=== PATIENT | male | born 1980 | race Hispanic/Latino ===

== ENCOUNTER 2019-11-02 15:12 | Emergency (ER) | payer SELFPAY ==
[2019-11-02 15:32] VITALS: BP 147/94; PULSE 74; RESP 18; TEMP 36.9; O2SAT 99
--- NOTE | 2019-11-02 16:02 | ED.GENADULT ---
HPI - General Adult General Chief complaint: Chest Pain Stated complaint: chest pain/headaches Time Seen by Provider: 11/02/19 16:15 Source: patient Mode of arrival: ambulatory Limitations: no limitations History of Present Illness HPI narrative: 39-year-old male patient presents to the [facility] with complaints of chest pain for the past 5 days. Patient states the chest pain kind of comes and goes and when it does occur he rates it about 4-5 out of 10. Patient states when he bends over he does have a little bit of shortness of breath but denies any shortness of breath with exertion. Patient denies any cardiac history that he is aware of. Patient states he also has been feeling a little lightheaded and dizzy recently. Patient is complaining of some burning to the back of the throat at times and has had some chills but denies any fevers. Patient states he has been taking NyQuil for his symptoms. Related Data Home Medications Medication Instructions Recorded Confirmed No Home Medications 11/02/19 11/02/19 Allergies Allergy/AdvReac Type Severity Reaction Status Date / Time No Known Allergies Allergy Unverified 08/09/18 16:19 Review of Systems Review of Systems: Narrative: CONSTITUTIONAL: Denies fever, positive chills, denies sweats. EYES: Denies visual changes, redness, or discharge. ENT: Denies rhinorrhea, congestion, positive sore throat, denies otalgia. CARDIOVASCULAR: Positive midsternal chest pain, denies palpitations, or edema. RESPIRATORY: Denies cough, positive dyspnea with bending over. GASTROINTESTINAL: Denies abdominal pain, nausea, vomiting, or diarrhea. GENITOURINARY: Denies dysuria or hematuria. SKIN: Denies rash or itching. MUSCULOSKELETAL: Denies back pain, joint pain, or myalgia. NEUROLOGIC: Denies headache, numbness, or weakness., Lightheadedness and dizziness intermittently. PSYCHIATRIC: Denies anxiety or depression. [facility] Family History Family History Other Cerebrovascular accident Diabetes mellitus Family history of cardiovascular disease Family history of kidney disease Hypertension Social History Social History Smoking status: Never smoker Alcohol intake: never Comments At the time of my signature I agree with nursing past medical history, surgical, social, and family history. There is no relevant family history pertinent to the presenting complaint. Exam Narrative: Exam Narrative: GENERAL: Well-appearing, well-nourished, and in no acute distress. HEAD: Normocephalic, atraumatic. No tenderness noted to frontal maxillary sinuses on palpation EYES: PERRLA and EOMI. ENT: Nares clear, no rhinorrhea or epistaxis. Mucous membranes moist. Posterior pharynx with tonsil enlargement, 2+ and some erythema. No exudates or lesions present. Bilateral TMs are clear with no erythema or foreign bodies in the canal. NECK: Supple. No lymphadenopathy CHEST: Clear to auscultation. No respiratory distress. Patient able talk in clear complete sentences. HEART: Regular rate and rhythm. No murmur heard. Normal peripheral pulses. ABDOMEN: Soft, nontender, nondistended, normal active bowel sounds. EXTREMITIES: Normal range of motion. No edema. SKIN: Warm, dry, no rash. NEURO: No focal deficits. Alert and oriented x3. Course Reevaluation(s) Reevaluation #1: Notified patient that he is negative today for strep. Discussed with him that the fact that he is having midsternal chest pain for the last 5 days with lightheadedness and dizziness is concerning and even though his EKG is unremarkable for anything acute such as an OR I think that we do need to send him to the ER for further evaluation and treatment treatment of these issues. Patient is in agreement with this plan of care requesting to go to [facility]. Date: 11/02/19 Time: 16:41 Vital Signs Vital signs: Vital Signs Temperature 36.9
--- NOTE | 2019-11-02 16:11 | ECG_ITS ---
Measurements Intervals [place] Rate: 58 P: 46 NE: 162 QRS: -5 QRSD: 94 T: 13 QT: 373 QTc: 368 Interpretive Statements SINUS BRADYCARDIA VOLTAGE CRITERIA FOR LVH MINIMAL Q WAVES- LATERAL LEADS BORDERLINE ECG Electronically Signed On 11-02-2019 19:10:47 PHYSICAL THERAPY ATTENDANT by Mehdi Bejarano D.O.
--- NOTE | 2019-11-02 16:39 | PC.NURSE ---
ekg complete. no pain at this time. strep is neg
== END 2019-11-02 16:54 | disposition short-term general hospital (02) ==
PROVIDERS: Emergency Provider Nurse Practitioner Family
DX: R07.9 Chest pain, unspecified (principal)
CPT/HCPCS: 87081; 87880; 93005; 99213; G0463

== ENCOUNTER 2019-11-02 17:07 | Observation (INO) | payer SELFPAY ==
[2019-11-02] VITALS (8 sets, daily range): BP systolic 129–163; BP diastolic 82–99; PULSE 52–70; RESP 13–18; TEMP 36.4–36.5; O2SAT 99–100; BMI 31.1
--- NOTE | ~2019-11-02 | XR_ITS ---
EXAMINATION: XR chest 2V EXAM DATE: 11/02/2019 17:33 INDICATION: Midsternal chest pain. TECHNIQUE: Frontal and lateral projections of the chest obtained and reviewed. There is no prior elpidio dy for comparison. FINDINGS: The lungs are clear. There are no pleural effusions. The cardiomediastinal silhouette is within normal limits. There is no pneumothorax suspected. The bones and soft tissues are unremarkab le. IMPRESSION: No acute cardiopulmonary findings. Reviewed, dictated and finalized at location A. DEVELOPMENT MANAGER
--- NOTE | 2019-11-02 17:10 | ECG_ITS ---
Measurements Intervals [place] Rate: 63 P: 53 ME: 167 QRS: 2 QRSD: 100 T: 26 QT: 362 QTc: 372 Interpretive Statements SINUS RHYTHM VOLTAGE CRITERIA FOR LVH BORDERLINE ECG Electronically Signed On 11-03-2019 7:25:29 SYRUP FILTERER by Mehdi Bejarano D.O.
[2019-11-02 17:25] LABS: Basophils Absolute Auto 0.1 K/mm3 (0.0-0.1); Basophils Percent Auto 0.8 % (0.2-1.2); Eosinophils Absolute Auto 0.1 K/mm3 (0-0.3); Eosinophils Percent Auto 1.3 % (0-4.4); Hematocrit 41.1 % (42.0-52.0); Hemoglobin 13.9 g/dL (14.0-18.0); Immature Granulocyte Absolute 0.02 K/mm3 (0.00-0.031); Immature Granulocyte Percent A 0.3 % (0-0.5); Lymphocytes Absolute Auto 2.55 K/mm3 (0.9-3.2); Lymphocytes Percent Auto 35.9 % (18.3-44.2); Mean Corpuscular HGB Conc 33.8 g/dl (32-36); Mean Corpuscular Hemoglobin 30.5 pg (26-34); Mean Corpuscular Volume 90.3 fl (80-100); Mean Platelet Volume 9.8 fl (7.4-10.4); Monocytes Absolute Auto 0.5 K/mm3 (0.1-0.6); Monocytes Percent Auto 6.6 % (2.6-8.5); Neutrophils Absolute Auto 3.9 K/mm3 (1.3-6.7); Neutrophils Percent Auto 55.1 % (45.5-73.1); Platelet Count Result 261 k/mm3 (150-375); Red Blood Count 4.55 M/mm3 (4.6-6.20); Red Cell Distribution Width 12.1 % (11.5-14.5); White Blood Count 7.1 K/mm3 (4.5-10.0)
[2019-11-02 17:36] LABS: Blood Urea Nitrogen 12 mg/dL (9-20); Calcium 8.9 mg/dL (8.4-10.2); Carbon Dioxide 26 mmol/L (22-30); Chloride 104 mmol/L (98-107); Estimated CRCL calculation 184 ml/min; Estimated Glomerular Filt Rate > 60; Glucose 87 mg/dL (75-110); Sodium 139 mmol/L (137-145)
[2019-11-02 17:37] LABS: INR 1.1; Prothrombin Time 13.8 Seconds (11.1-14.7)
[2019-11-02 17:38] LABS: Partial Thromboplastin Time 27.5 SECONDS (22.3-36.8)
[2019-11-02 17:48] LABS: Troponin I < 0.012 ng/mL (0.000-0.034)
--- NOTE | 2019-11-02 18:15 | ED.CHESTPAIN ---
HPI - Chest Pain General Chief Complaint: Chest Pain Stated Complaint: cp Time Seen by Provider: 11/02/19 18:13 Source: patient, family (Family at bedside) and RN notes reviewed Mode of arrival: ambulatory Limitations: language barrier History of Present Illness HPI narrative: Pt is a 39 y/o male presenting to the ED c/o CP. Pt translates he has been experiencing midsternal CP for 5 days. Pt notes the pain is constant and describes it as pressure. Pt denies SOB or N/V. Pt's family at bedside reports the pt's father has had an RI previously. Pt also denies any known Hx's of HTN or DM. HPI is limited due to pt/physician language barrier. Pt's family at bedside translated most information. Pertinent past history: other (None) Onset (ago): day(s) (5) Timing of current episode: constant Pain location: substernal Quality: other (Pressure) Associated symptoms: other (None) Related Data Home Medications Medication Instructions Recorded Confirmed No Home Medications 11/02/19 11/02/19 Allergies Allergy/AdvReac Type Severity Reaction Status Date / Time No Known Allergies Allergy Unverified 08/09/18 16:19 Review of Systems Review of Systems: Narrative: ROS is limited due to pt/physician language barrier. Most information translated by pt's family at bedside. All systems reviewed & are unremarkable except as noted in HPI and below Cardiovascular: Cardiovascular: Reports chest pain (Midsternal) Respiratory: Respiratory: Denies dyspnea Gastrointestinal: Gastrointestinal: Denies nausea and Denies vomiting PMFSH Past Medical History Medical History No significant past medical history Surgical History Surgical History No significant past surgical history Family History Family History Other Cerebrovascular accident Diabetes mellitus Family history of cardiovascular disease Family history of kidney disease Hypertension Social History Social History Smoking status: Never smoker Alcohol intake: never Gender identity (if verbalized by the patient): Male Exam Narrative: Exam Narrative: GENERAL: Well-appearing, well-nourished, and in no acute distress. HEAD: Normocephalic, atraumatic. EYES: PERRLA and EOMI. ENT: Nares clear, Mucous membranes moist. NECK: Supple. CHEST: Clear to auscultation. No respiratory distress. HEART: Regular rate and rhythm. No murmur heard. Normal peripheral pulses. ABDOMEN: Soft, nontender, nondistended, normal active bowel sounds. EXTREMITIES: Normal range of motion. No edema. SKIN: Warm, dry, no rash. NEURO: No focal deficits. Alert and oriented x3. PSYCH: Normal mood and affect. Course Course Emergency Course: Inform patient and his family about his lab work however patient continues to have chest pain intermittently. We will admit him to the hospital for rule out. I discussed with all agreed to admit the patient. Vital Signs Vital signs: Vital Signs Temperature 36.5 C 11/02/19 17:10 Pulse Rate 66 11/02/19 17:10 Respiratory Rate 18 11/02/19 17:10 Blood Pressure 163/99 H 11/02/19 17:10 Pulse Oximetry 100 11/02/19 17:10 Temperature 36.5 C 11/02/19 17:10 Pulse Rate 61 11/02/19 19:10 Respiratory Rate 13 11/02/19 19:10 Blood Pressure 129/82 11/02/19 19:10 Pulse Oximetry 100 11/02/19 19:10 MDM - Chest Pain Lab Data Result diagrams: 11/02/19 17:18 11/02/19 17:18 Labs: Lab Results 11/02/19 11/02/19 11/02/19 Range/Units 17:18 17:18 17:18 WBC 7.1 (4.5-10.0) K/mm3 RBC 4.55 L (4.6-6.20) M/mm3 Hgb 13.9 L (14.0-18.0) g/dL Hct 41.1 L (42.0-52.0) % MCV 90.3 (80-100) fl MCH 30.5 (26-34) pg MCHC 33.8 (32-36) g/dl RDW 12.1 (11.5-14.5) % Plt Count 261 (150-375) k/mm3 MPV
--- NOTE | 2019-11-02 18:42 | PC.NURSE ---
EDP aware of patient's BP, Norvasc not given per verbal order.
--- NOTE | 2019-11-02 19:10 | PC.NURSE ---
assuming care of pt at this time. received report from christian davis.
[2019-11-02 21:27] LABS: Troponin I < 0.012 ng/mL (0.000-0.034)
[2019-11-02] MEDS: FAMOTIDINE 20 MG/2 ML VIAL IV PUSH (22:17)
[2019-11-03] VITALS: BP 121/79; PULSE 55; PULSE 70; RESP 18; TEMP 36.1; O2SAT 100
--- NOTE | 2019-11-03 | ECHO_ITS ---
Patient Info Name: Sukh Marie Age: 39 years : 1980 Gender: Male Ht: 73 in Wt: 235 lbs BSA: 2.37 m2 HR: 71 bpm BP: 122 / 76 mmHg Technical Quality: Good Exam Date: 11/03/2019 9:39 AM Exam Location: [facility] Patient Status: Outpatient Admit Date: 11/02/2019 Staff Ordering Physician: Ramon Wilson MD Midlevel Provider: Cherrie Moss RDCS Attending Provider: Ramon Wilson MD Exam Type: CA echo doppler color flow Study Info Complete two-dimensional, color flow and Doppler transthoracic echocardiogram is performed. Summary 1. Left ventricular chamber dimension is normal. 2. Left ventricular systolic function is normal, estimated at 65-70%. Left Ventricle Left ventricular chamber dimension is normal. Left ventricular systolic function is normal, estimated at 65-70%. There is no increased left ventricular wall thickness. Left ventricular septal wall motion is normal. The left ventricular diastolic function is normal. Right Ventricle Right ventricular chamber dimension is normal. Right ventricular systolic function is normal. Left Atria Left atrial chamber dimension is normal. Right Atria Right atrial chamber dimension is normal. Aortic Valve The aortic valve is trileaflet. There is no aortic valve sclerosis. There is no aortic valve stenosis. There is no aortic valve regurgitation. Pulmonic Valve The pulmonic valve is normal. There is no pulmonic valve stenosis. There is no pulmonic regurgitation. Mitral Valve The mitral valve has normal leaflets. There is no mitral valve stenosis. There is no mitral valve regurgitation. Tricuspid Valve The tricuspid valve leaflets are normal. There is no significant tricuspid valve stenosis. There is no tricuspid valve regurgitation. Pericardium/Pleural The pericardium appears normal. There is no pericardial effusion. Aorta The aortic root size at the sinus of Valsalva is normal. The prox ascending aorta size is normal. Left Ventricular Outflow Tract Name Value Normal LVOT 2D LVOT Diameter 2.3 cm LVOT Doppler LVOT Peak Velocity 124 cm/s LVOT Peak Gradient 3 mmHg LVOT Mean Gradient 2 mmHg LVOT VTI 24 cm LVOT VTI/AV VTI Ratio 1.0 LVOT Stroke Volume 98 ml LVOT CO 17.7 l/min LVOT CI 7.5 l/min/m2 Pulmonic Valve Name Value Normal PV Doppler PV Peak Velocity 130 cm/s PV Peak Gradient 7 mmHg Mitral Valve Name Value Normal
[2019-11-03 00:12] LABS: Troponin I < 0.012 ng/mL (0.000-0.034)
[2019-11-03] MEDS: NITROGLYCERIN OINTMENT 1 INCH DOSE TRANSDERM ×2 (00:41→06:26)
[2019-11-03 02:00] VITALS: PULSE 52
[2019-11-03 03:32] LABS: Cholesterol 146 mg/dL (0-200); HDL Direct 30 mg/dL; Triglycerides 125 mg/dL (<150)
[2019-11-03 03:42] LABS: LDL Cholesterol Direct 98 mg/dL
[2019-11-03 04:00] VITALS: BP 113/72; PULSE 51; PULSE 55; RESP 16; TEMP 36.4; O2SAT 98
[2019-11-03 06:00] VITALS: PULSE 57
--- NOTE | 2019-11-03 06:15 | ADMIMU ---
This patient, Sukh Marie, was admitted to IMU status, and placed in IMU Room 209- om 11/02/19 at 2138. Patient/family oriented to hospital policies and general routines including ID bracelet, bed and alarms, visiting hours, pain management, procedures, bathroom and other care routines, personal items, smoking policy, room service/diet, and visiting hours. Valuables list has been completed. Information on how to activate the Rapid Response Team has been discussed. Patient/Family are encouraged to report perceived risks to care and to ask questions if they do not understand what they are told or what they should do.
[2019-11-03 08:00] VITALS: BP 122/76; PULSE 57; PULSE 65; RESP 16; TEMP 36.8; O2SAT 98
--- NOTE | 2019-11-03 08:46 | PM.IMHP ---
H&P: HPI History of Present Illness Chief complaint: chest pain Narrative: Sukh Marie is a 39 year old male 39 years old gentleman, with no significant past history came to the hospital because of chest pain started few days ago. He stated that he had as central chest pain occasional left-sided chest pain was nonexertional pain seems to be heavy with no significant shortness of breath, and pain does not change with exertion. So far cardiac enzymes are negative and EKG is unremarkable. He came to the hospital last night, 3 sets of cardiac troponins are negative, and he still feeling some chest pressure. He gets occasional heartburn and he gets occasional feeling in the throat of acidity, I spoke with him through microbial specialist through the video translation, seems to be accurate translation as he were able to describe his condition. And he still having significant pain but no significant shortness breath no orthopnea no PNDs is relatively active with no limitation. No known cardiac history, no history of syncope, he does not smoke, and no significant history of heart disease. Review of Systems Cardiovascular: Cardiovascular: Reports as per HPI Respiratory: Respiratory: Reports no additional respiratory complaints Gastrointestinal: Gastrointestinal: Reports heartburn PMFSH Past Medical History Medical History No significant past medical history Surgical History Surgical History No significant past surgical history Family History Family History Father Diabetes mellitus Family history of cardiovascular disease Hypertension Acute myocardial infarction Cerebrovascular accident Patient's father is Family history of kidney disease Sibling Hypertension Diabetes mellitus Social History Social History Smoking status: Never smoker Alcohol intake: never Gender identity (if verbalized by the patient): Male Meds Home Medications and Allergies Home Medications Medication Instructions Recorded Confirmed Type No Home Medications 11/02/19 11/02/19 History Allergies Allergy/AdvReac Type Severity Reaction Status Date / Time No Known Allergies Allergy Unverified 08/09/18 16:19 Vital Signs Vital Signs - 24 hr 11/02/19 17:10 11/02/19 18:43 11/02/19 19:10 Temperature 36.5 C Pulse Rate 66 56 L 61 Respiratory Rate 18 18 13 Blood Pressure 163/99 H 133/86 129/82 Pulse Oximetry 100 100 100 11/02/19 20:18 11/02/19 21:09 11/02/19 21:40 Temperature Pulse Rate 56 L 52 L 68 Respiratory Rate 14 14 Blood Pressure 133/85 145/87 H Pulse Oximetry 100 100 11/02/19 21:45 11/02/19 22:00 11/03/19 00:00 Temperature 36.4 C 36.1 C L Pulse Rate 60 70 70 Respiratory Rate 16 18 Blood Pressure 149/92 H 121/79 Pulse Oximetry 99 100 11/03/19 02:00 11/03/19 04:00 11/03/19 06:00 Temperature 36.4 C L Pulse Rate 52 L 51 L 57 L Respiratory Rate 16 Blood Pressure 113/72 Pulse Oximetry 98 11/03/19 08:00 Temperature 36.8 C Pulse Rate 57 L Respiratory Rate 16 Blood Pressure 122/76 Pulse Oximetry 98 Exam Narrative: Exam Narrative: Awake alert oriented x3 not in acute distress Neck is supple no obvious JVD, no carotid bruit Chest: Good air entry bilaterally, lungs are clear to auscultation and percussion bilaterally Cardiovascular: Regular rate and rhythm, 2/6 systolic murmur noted left sternal border Abdomen: Soft nontender bowel sounds positive Extremities: No edema has good pulses distally bilaterally H&P: Results Labs Labs: Short CBC 11/02/19 Range/Units 17:18 WBC 7.1 (4.5-10.0) K/mm3 Hgb 13.9 L (14.0-18.0) g/dL Hct 41.1 L (42.0-52.0) % Plt Count 261 (150-375) k/mm3 [facility] 11/02/19 17:18 Sodium 139 Potassium 4.0 Chloride 104 C
[2019-11-03] MEDS: PANTOPRAZOLE 40 MG TABLET PO (09:27)
[2019-11-03] MEDS: ASPIRIN 81 MG CHEWABLE TABLET PO (09:27)
[2019-11-03] MEDS: ENOXAPARIN 40 MG/0.4 ML SYRINGE SUB-Q (09:27)
--- NOTE | 2019-11-03 09:46 | PM.DS ---
DS: Diagnosis Admitting Diagnosis Admitting Diagnosis: Chest pain, unspecified Discharge Diagnosis (1) Chest pain: Qualifiers: Chest pain type: unspecified Qualified Code(s): R07.9 - Chest pain, unspecified Code(s): R07.9 - Chest pain, unspecified Status: Acute Assessment and Plan: Does not seem to be cardiac in nature, as his EKG is unremarkable cardiac enzymes so far negative. Will get echocardiogram today to look for structural heart disease and will need to have a stress test which could not be done in the hospital because of the weekend will arrange for that as an outpatient (2) Atypical chest pain: Code(s): R07.89 - Other chest pain Status: Acute (3) GERD with esophagitis: Code(s): K21.0 - Gastro-esophageal reflux disease with esophagitis Status: Acute Assessment and Plan: He seems to have gastrointestinal related symptoms, will start him on Protonix 40 mg twice daily, and he can be discharged home with that to have a follow-up as an outpatient to consider outpatient stress test DS: Summary Time Spent with Patient Time attestation: Total time spent providing and/or coordinating discharge services: Exam Narrative: Exam Narrative: Awake alert oriented x3 not in acute distress Neck is supple no obvious JVD, no carotid bruit Chest: Good air entry bilaterally, lungs are clear to auscultation and percussion bilaterally Cardiovascular: Regular rate and rhythm, 2/6 systolic murmur noted left sternal border Abdomen: Soft nontender bowel sounds positive Extremities: No edema has good pulses distally bilaterally DS: Data Data Completed and Pending Labs on day of discharge: Labs from last 24 hours 11/03/19 11/02/19 11/02/19 03:11 23:43 20:46 WBC RBC Hgb Hct MCV MCH MCHC RDW Plt Count MPV Immature Gran % (Auto) Neut % (Auto) Lymph % (Auto) Hodgeman % (Auto) Eos % (Auto) Baso % (Auto) Lymph # (Auto) Hodgeman # (Auto) Eos # (Auto) Baso # (Auto) Abs Immat Gran (auto) Absolute Neuts (auto) Absolute Nucleated RBC Nucleated RBC % PT INR APTT Sodium Potassium Chloride Carbon Dioxide BUN Creatinine Estim Creat Clear Calc Estimated GFR Glucose Calcium Troponin I < 0.012 < 0.012 Triglycerides 125 Cholesterol 146 LDL Cholesterol Direct 98 HDL Direct 30 11/02/19 11/02/19 11/02/19 17:18 17:18 17:18 WBC 7.1 RBC 4.55 L Hgb 13.9 L Hct 41.1 L MCV 90.3 MCH 30.5 MCHC 33.8 RDW 12.1 Plt Count 261 MPV 9.8 Immature Gran % (Auto) 0.3 Neut % (Auto) 55.1 Lymph % (Auto) 35.9 Hodgeman % (Auto) 6.6 Eos % (Auto) 1.3 Baso % (Auto) 0.8 Lymph # (Auto) 2.55 Hodgeman # (Auto) 0.5 Eos # (Auto) 0.1 Baso # (Auto) 0.1 Abs Immat Gran (auto) 0.02 Absolute Neuts (auto) 3.9 Absolute Nucleated RBC 0.0 Nucleated RBC % 0.0 PT 13.8 INR 1.1 APTT 27.5 Sodium 139 Potassium 4.0 Chloride 104 Carbon Dioxide 26 BUN 12 Creatinine 0.60 L Estim Creat Clear Calc 184 Estimated GFR > 60 Glucose 87 Calcium 8.9 Troponin I < 0.012 Triglycerides Cholesterol LDL Cholesterol Direct HDL Direct Discharge Plan Discharge Attending physician on discharge: Ramon Wilson Discharging Clinician: Ramon Wilson Patient Disposition: Home, Self-Care Activity: as tolerated Diet: as tolerated Patient Instructions: Antibiotic Form, Angina (DC), Chest Pain (GEN) Stand Alone Forms: General Discharge Information Follow-up/Referrals: Ramon Wilson MD [Physician] - 1 Week Discharge Medications: New pantoprazole 40 mg Tablet,Delayed Release (Dr/Ec) 40 mg PO Q12HR Qty: 60 RF: 0 No Action No Home Medications RF: 0 Date of admission: 11/02/19 20:12 Primary Care Provider: UNKNOWN,DOCTOR
[2019-11-03 11:51] VITALS: BP 124/73; PULSE 60; RESP 18; TEMP 36.9; O2SAT 99
[2019-11-03] MEDS: ACETAMINOPHEN 325 MG TABLET 650 MG PO (12:17)
== END 2019-11-03 14:00 | disposition home or self-care (01) ==
LOC: ANHED 20:13 → ANHIMU 21:03
PROVIDERS: Emergency Medicine; Admitting Provider Specialist; Emergency Provider Family Medicine; Visit Provider Specialist
DX: R07.89 Other chest pain (principal); K21.0 Gastro-esophageal reflux disease with esophagitis; Z82.49 Family history of ischemic heart disease and other diseases of the circulatory system; Z83.3 Family history of diabetes mellitus
CPT/HCPCS: 36415; 71046; 80048; 80061; 84484; 85025; 85610; 85730; 93005; 93306; 96372; 96374; 99285; A9270; G0378; G0379; J1650

== ENCOUNTER 2021-01-14 12:59 | Emergency (ER) | payer SELFPAY ==
[2021-01-14 13:19] VITALS: BP 133/86; PULSE 86; RESP 19; TEMP 36.7; O2SAT 100
--- NOTE | 2021-01-14 14:13 | ED.GENADULT ---
HPI - General Adult General Chief complaint: Skin/Abscess/Foreign Body Stated complaint: hives Time Seen by Provider: 01/14/21 14:02 Source: RN notes reviewed History of Present Illness HPI narrative: Patient presents to emergency department from home for hives. Patient states symptoms began approximately 12:30 PM when he was at work today notes hives over bilateral upper extremities chest abdomen back and lower extremities states they are itchy in nature. States he took no medication for the symptoms at home. He denies any previous allergies he denies any new soaps lotions or detergents denies any new foods. Patient denies any swelling of lips or tongue shortness of breath or cough . Related Data Allergies Allergy/AdvReac Type Severity Reaction Status Date / Time No Known Allergies Allergy Verified 01/14/21 14:01 Review of Systems Review of Systems: Narrative: Gen.: Denies fevers or chills Eyes: Denies eye pain or visual change ENT: Denies congestion Respiratory: Denies shortness of breath or cough CV: Denies chest pain or palpitations GI: Denies abdominal pain nausea, emesis Musculoskeletal: Denies back pain or joint pain Neuro: Denies headache or weakness Skin: See HPI Except as documented, all other systems reviewed and negative [facility] Past Medical History Medical History (Updated 01/14/21 @ 16:27 by Richard Muñoz DO) No significant past medical history Surgical History Surgical History No significant past surgical history Family History Family History Father Diabetes mellitus Family history of cardiovascular disease Hypertension Acute myocardial infarction Cerebrovascular accident Patient's father is Family history of kidney disease Sibling Hypertension Diabetes mellitus Social History Social History Smoking status: Never smoker Alcohol intake: never Gender identity (if verbalized by the patient): Male Exam Narrative: Exam Narrative: APPEARANCE: No acute distress, nontoxic, resting in bed EYES: EOMI HEENT: Normocephalic, atraumatic, OMM no swelling of the lips or tongue RESPIRATORY: No respiratory distress Clear to auscultation bilaterally with no rhonchi wheezing or rales. CARDIOVASCULAR: Regular rate and rhythm without murmurs rubs or gallops. ABDOMINAL: Soft, nontender, MUSCULOSKELETAl: Moves all extremities. No clubbing, cyanosis or edema. NEURO: Awake and alert. Following commands, speech normal, no focal deficits SKIN:: Warm, dry. Diffuse urticaria over the bilateral chest abdomen back upper and lower extremities with excoriation PSYCHIATRIC: Normal affect/mood, Course Course Emergency Course: Patient feeling much better following medication hives have resolved at this time Discussed with patient results of workup and diagnosis. Discussed need for follow-up with primary care, proper use of medication, and reasons to return to the emergency department. Patient understands and agrees to current treatment plan Vital Signs Vital signs: Vital Signs Temperature 98.1 F 01/14/21 13:19 Pulse Rate 86 01/14/21 13:19 Respiratory Rate 01/14/21 13:19 Blood Pressure 133/86 01/14/21 13:19 Pulse Oximetry 100 01/14/21 13:19 Temperature 98.1 F 01/14/21 13:19 Pulse Rate 86 01/14/21 13:19 Respiratory Rate 01/14/21 13:19 Blood Pressure 133/86 01/14/21 13:19 Pulse Oximetry 100 01/14/21 13:19 Medical Decision Making Vital Signs Vital Signs: Vital Signs Temperature 98.1 F 01/14/21 13:19 Pulse Rate 86 01/14/21 13:19 Respiratory Rate 01/14/21 13:19 Blood Pressure 133/86 01/14/21 13:19 Pulse Oximetry 100 01/14/21 13:19 Temperature 98.1 F 01/14/21 13:19 Pulse Rate 86 01/14/21 13:19 Respiratory Rate 01/14/21 13:19 Blood Pressure 133/8
[2021-01-14] MEDS: diphenhydrAMINE HCl CAP 25 MG CAPSULE 50 MG (14:30)
[2021-01-14] MEDS: FAMOTIDINE 20 MG TABLET (14:30)
[2021-01-14] MEDS: predniSONE 20 MG TABLET 60 MG (14:30)
--- NOTE | 2021-01-14 15:01 | PC.NURSE ---
Medications given via order and charted on the overrides in MAR due to orders not crossing into MAR.
--- NOTE | 2021-01-14 16:00 | PC.NURSE ---
significant improvement noted to hives and itching relief per patient. EDP notified.
[2021-01-14 16:37] VITALS: BP 128/72; PULSE 80; RESP 16; O2SAT 100
== END 2021-01-14 16:39 | disposition home or self-care (01) ==
PROVIDERS: Emergency Provider Emergency Medicine; PCP Family Medicine
DX: L50.9 Urticaria, unspecified (principal)
CPT/HCPCS: 99283; A9270; J7512

== ENCOUNTER 2021-01-15 23:46 | Emergency (ER) | payer SELFPAY ==
[2021-01-15 23:51] VITALS: BP 130/83; PULSE 54; RESP 16; TEMP 35.9; O2SAT 100
--- NOTE | 2021-01-16 00:28 | ED.GENADULT ---
HPI - General Adult General Chief complaint: Skin/Abscess/Foreign Body Stated complaint: seen yesterday for hives. not better Time Seen by Provider: 01/16/21 00:11 Source: patient, family, RN notes reviewed and old records reviewed History of Present Illness HPI narrative: Video paramedic supervisor used due to language barrier. 40-year-old male presents to emergency department for itchy rash that he noticed on January 14. Patient was seen the same day, and given prescription medications. He states the rash returned a few hours ago. He is denies any pain with the rash only reporting it to be itchy. He has not taken any Benadryl for symptoms. Denies chest pain or shortness of breath. No lightheadedness or dizziness. No nausea or vomiting. Related Data Allergies Allergy/AdvReac Type Severity Reaction Status Date / Time No Known Allergies Allergy Verified 01/15/21 23:59 Review of Systems Review of Systems: Narrative: CONSTITUTIONAL: Denies fever, chills, or sweats. EYES: Denies visual changes, redness, or discharge. ENT: Denies rhinorrhea, congestion, sore throat, or otalgia. CARDIOVASCULAR: Denies chest pain, palpitations, or edema. RESPIRATORY: Denies cough or dyspnea. GASTROINTESTINAL: Denies abdominal pain, nausea, vomiting, or diarrhea. GENITOURINARY: Denies dysuria or hematuria. SKIN: Denies rash or itching. MUSCULOSKELETAL: Denies back pain, joint pain, or myalgia. NEUROLOGIC: Denies headache, numbness, dizziness, or weakness. PSYCHIATRIC: Denies anxiety or depression. All systems reviewed & are unremarkable except as noted in HPI and below (ROS) [facility] Past Medical History Medical History (Updated 01/16/21 @ 01:30 by Boyd Mallory DO) No significant past medical history Surgical History Surgical History No significant past surgical history Family History Family History Father Diabetes mellitus Family history of cardiovascular disease Hypertension Acute myocardial infarction Cerebrovascular accident Patient's father is Family history of kidney disease Sibling Hypertension Diabetes mellitus Social History Social History Smoking status: Never smoker Alcohol intake: never Gender identity (if verbalized by the patient): Male Exam Narrative: Exam Narrative: GENERAL: Well-appearing, well-nourished, and in no acute distress. HEAD: Normocephalic, atraumatic. EYES: PERRLA and EOMI. ENT: Nares clear, no rhinorrhea or epistaxis. Mucous membranes moist. NECK: Supple. CHEST: Clear to auscultation. No respiratory distress. HEART: Regular rate and rhythm. No murmur heard. Normal peripheral pulses. ABDOMEN: Soft, nontender, nondistended, normal active bowel sounds. EXTREMITIES: Normal range of motion. No edema. SKIN: Nonraised, blanching erythema noticed to left wrist region, right lower extremity, upper extremities bilaterally just distal to axilla. NEURO: No focal deficits. Alert and oriented x3. PSYCH: Normal mood and affect. Course Course Emergency Course: 0125 reevaluated patient, rash gone at this time. Counseled patient to take Benadryl as needed for rash/itchiness. Patient states he has an appointment with his primary care physician next week. Continue taken steroids as prescribed Vital Signs Vital signs: Vital Signs Temperature 35.9 C L 01/15/21 23:51 Pulse Rate 54 L 01/15/21 23:51 Respiratory Rate 16 01/15/21 23:51 Blood Pressure 130/83 01/15/21 23:51 Pulse Oximetry 100 01/15/21 23:51 Temperature 35.9 C L 01/15/21 23:51 Pulse Rate 54 L 01/15/21 23:51 Respiratory Rate 16 01/15/21 23:51 Blood Pressure 130/83 01/15/21 23:51 Pulse Oximetry 100 01/15/21 23:51 Medical Decision Making Medical Records Medical records reviewed: Yes I reviewed the external patient's medical records. Gege
[2021-01-16] MEDS: diphenhydrAMINE HCl CAP 25 MG CAPSULE PO (00:37)
== END 2021-01-16 01:40 | disposition home or self-care (01) ==
PROVIDERS: Emergency Provider Emergency Medicine; PCP Family Medicine
DX: T78.40XA Allergy, unspecified, initial encounter (principal); R21 Rash and other nonspecific skin eruption
CPT/HCPCS: 99282; A9270; J1200

== ENCOUNTER 2021-05-22 19:08 | Emergency (ER) | payer SELFPAY ==
--- NOTE | ~2021-05-22 | XR_ITS ---
EXAMINATION: XR chest 2V DATE: 05/22/2021 19:36 INDICATION: Midsternal chest pain TECHNIQUE: PA and lateral views of the chest were obtained. COMPARISON: Chest radiograph dated 11/02/2019 FINDINGS: The lungs remain clear with no focal airspace opacities, pulmonary edema, pleural effusion or pneumot horax. The cardiomediastinal silhouette is normal. Mild thoracic spondylosis. IMPRESSION: 1. No acute cardiopulmonary disease. Reviewed, dictated and finalized at location A.
--- NOTE | 2021-05-22 19:16 | ECG_ITS ---
Measurements Intervals [place] Rate: 57 P: -18 VA: 124 QRS: 5 QRSD: 111 T: 74 QT: 381 QTc: 372 Interpretive Statements SINUS OR ECTOPIC ATRIAL BRADYCARDIA INTRAVENTRICULAR CONDUCTION DELAY MINIMAL Q WAVES- HIGH LATERAL LEADS BORDERLINE ECG Electronically Signed On 05-23-2021 14:08:38 CDT by Mehdi Bejarano D.O.
[2021-05-22 19:18] VITALS: BP 130/90; PULSE 62; RESP 18; TEMP 36.8; O2SAT 100
[2021-05-22 19:35] LABS: Basophils Absolute Auto 0.1 K/mm3 (0.0-0.1); Basophils Percent Auto 0.9 % (0.2-1.2); Eosinophils Absolute Auto 0.1 K/mm3 (0-0.3); Hematocrit 40.1 % (42.0-52.0); Immature Granulocyte Absolute 0.01 K/mm3 (0.00-0.031); Immature Granulocyte Percent A 0.1 % (0-0.5); Lymphocytes Absolute Auto 2.63 K/mm3 (0.9-3.2); Lymphocytes Percent Auto 38.2 % (18.3-44.2); Mean Corpuscular HGB Conc 34.9 g/dl (32-36); Mean Corpuscular Hemoglobin 31.4 pg (26-34); Mean Corpuscular Volume 89.9 fl (80-100); Mean Platelet Volume 9.8 fl (7.4-10.4); Monocytes Absolute Auto 0.4 K/mm3 (0.1-0.6); Monocytes Percent Auto 5.7 % (2.6-8.5); Neutrophils Absolute Auto 3.7 K/mm3 (1.3-6.7); Neutrophils Percent Auto 54.1 % (45.5-73.1); Platelet Count Result 236 k/mm3 (150-375); Red Blood Count 4.46 M/mm3 (4.6-6.20); White Blood Count 6.9 K/mm3 (4.5-10.0)
[2021-05-22 19:45] LABS: Anion Gap 8 mmol/L (8-16); Blood Urea Nitrogen 15 mg/dL (9-20); Calcium 9.2 mg/dL (8.4-10.2); Carbon Dioxide 29 mmol/L (22-30); Chloride 104 mmol/L (98-107); Estimated CRCL calculation 114 ml/min; Estimated Glomerular Filt Rate > 60; Glucose 95 mg/dL (65-110); Partial Thromboplastin Time 25.5 SECONDS (22.3-36.8); Potassium 3.8 mmol/L (3.4-5.0); Prothrombin Time 13.5 Seconds (11.1-14.7); Sodium 141 mmol/L (137-145)
[2021-05-22 19:57] LABS: Troponin I < 0.012 ng/mL (0.000-0.034)
--- NOTE | 2021-05-22 22:06 | ED.CHESTPAIN ---
HPI - Chest Pain General Chief Complaint: Chest Pain Stated Complaint: Chest pain for few days Time Seen by Provider: 05/22/21 22:05 Source: patient Mode of arrival: ambulatory Limitations: no limitations History of Present Illness HPI narrative: Patient is a 40-year-old male complaining of chest tightness, intermittent, 6 out of 10, currently denies any pain, nonradiating started 2 days ago. Patient denies any shortness of breath, abdominal pain, nausea, vomiting, diaphoresis, fever or chills. Related Data Allergies Allergy/AdvReac Type Severity Reaction Status Date / Time No Known Allergies Allergy Verified 05/22/21 22:47 Review of Systems Review of Systems: All systems reviewed & are unremarkable except as noted in HPI and below Constitutional: Constitutional: Denies body ache(s), Denies chills, Denies excessive sweating, Denies fatigue, Denies fever(s), Denies headache(s), Denies lethargy, Denies malaise, Denies weakness and Denies weight loss Eyes: Eyes: Denies blurry vision, Denies change in vision and Denies loss of vision ENT: Denies dizziness, Denies ear discharge, Denies headache(s), Denies lip swelling, Denies epistaxis, Denies nasal congestion, Denies neck pain, Denies throat swelling and Denies tongue swelling Cardiovascular: Cardiovascular: Denies chest pain, Denies chest pain at rest, Denies chest pain with activity, Denies diaphoresis, Denies rapid heart rate, Denies edema, Denies irregular heart rhythm, Denies lightheadedness, Denies palpitations, Denies dyspnea and Denies dyspnea on exertion Respiratory: Respiratory: Denies chest congestion, Denies cough, Denies hemoptysis, Denies dyspnea and Denies dyspnea on exertion Gastrointestinal: Gastrointestinal: Denies abdominal pain, Denies melena, Denies hematochezia, Denies diarrhea, Denies nausea, Denies vomiting and Denies hematemesis Musculoskeletal: Musculoskeletal: Denies abnormal gait, Denies deformity, Denies joint swelling, Denies limited range of motion, Denies neck pain and Denies numbness Neurologic: Denies Abnormal speech present, Denies abnormal gait, Denies confusion, Denies dizziness, Denies headache(s), Denies focal weakness, Denies loss of vision, Denies numbness, Denies Other visual disturbances, Denies Sensory deficit (Neuro) and Denies weakness Psychiatric: Psychiatric: Denies confusion, Denies depression, Denies auditory hallucinations, Denies homicidal ideation and Denies suicidal ideation Endocrine: Endocrine: Denies cold intolerance, Denies excessive sweating, Denies fatigue, Denies heat intolerance and Denies palpitations Hematologic/Lymphatic: Hematologic/Lymphatic: Denies easy bleeding and Denies easy bruising Allergic/Immunologic: Allergic/Immunologic: Denies lip swelling, Denies throat swelling and Denies tongue swelling PMFSH Past Medical History Medical History (Updated 05/22/21 @ 23:39 by Richard Church MD) No significant past medical history Surgical History Surgical History No significant past surgical history Family History Family History Father Diabetes mellitus Family history of cardiovascular disease Hypertension Acute myocardial infarction Cerebrovascular accident Patient's father is Family history of kidney disease Sibling Hypertension Diabetes mellitus Social History Social History Smoking status: Never smoker Alcohol intake: never Gender identity (if verbalized by the patient): Male Exam Const: General: cooperative, healthy appearing, comfortable, no acute distress, well developed, alert and awake; No confusion Orientation/consciousness: oriented to person, oriented to place, oriented to time, patient oriented x3 and No confusion Limitations: no limitations HENMT: Head: normal to inspection, normocephalic and
[2021-05-22 22:44] LABS: Troponin I < 0.012 ng/mL (0.000-0.034)
[2021-05-22 22:54] VITALS: BP 140/98; PULSE 65; RESP 18; TEMP 36.6; O2SAT 100; O2SAT 99
[2021-05-22 23:45] VITALS: BP 130/94; PULSE 55; RESP 17; TEMP 36.7; O2SAT 100
== END 2021-05-22 23:46 | disposition home or self-care (01) ==
PROVIDERS: Emergency Medicine; Emergency Provider Emergency Medicine
DX: R07.89 Other chest pain (principal); I45.9 Conduction disorder, unspecified; R94.31 Abnormal electrocardiogram [ECG] [EKG]
CPT/HCPCS: 36415; 71046; 80048; 84484; 85025; 85610; 85730; 93005; 99284

== ENCOUNTER 2022-03-23 15:53 | Emergency (ER) | payer SELFPAY ==
--- NOTE | ~2022-03-23 | CT_ITS ---
EXAMINATION: CT BRAIN W/O DATE: 03/23/2022 17:05 INDICATION: Hypertension. Headache. TECHNIQUE: Computed tomography (CT) of the head was performed without intravenous contrast. The dose- length product was 605.33 mGy-cm. Automated exposure control and iterative reconstruction technique w ere employed. COMPARISON: No prior studies for comparison. FINDINGS: Normal brain parenchymal volume for age. Normal gee-white differentiation. No acute intrac ranial hemorrhage, infarction, mass or mass effect. No ventriculomegaly or midline shift. Midline sagittal images demonstrate a normal corpus callosum, c raniovertebral junction and sella turcica. Basilar cisterns are patent. Paranasal sinuses and mastoids are pneumatized. No depressed skull fractures. IMPRESSION: 1. No acute intracranial abnormality. Reviewed, dictated and finalized at location A.
[2022-03-23 16:06] VITALS: BP 150/90; PULSE 66; RESP 20; TEMP 37.2; O2SAT 100
--- NOTE | 2022-03-23 16:56 | ECG_ITS ---
Measurements Intervals [place] Rate: 51 P: 52 FL: 162 QRS: 13 QRSD: 97 T: 40 QT: 395 QTc: 366 Interpretive Statements SINUS BRADYCARDIA VOLTAGE CRITERIA FOR LVH MINIMAL Q WAVES- HIGH LATERAL LEADS BORDERLINE ECG Electronically Signed On 03-23-2022 20:13:29 CDT by Mehdi Bejarano D.O.
--- NOTE | 2022-03-23 17:04 | PC.NURSE ---
went to collect blood specimen, pt at xray at this time.
--- NOTE | 2022-03-23 17:06 | ED.GENADULT ---
HPI - General Adult General Chief complaint: Headache Stated complaint: Headache Time Seen by Provider: 03/23/22 16:32 History of Present Illness HPI narrative: 41-year-old male presenting to the emergency department for evaluation of headache and hypertension. Patient does have a history of hypertension but it has not been high enough to start medications per his primary care physician. 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 Patient was using a artificial pearl maker. Patient states while he was using the artificial pearl maker he had onset of a headache and also measured his blood pressure and noticed it was elevated. Patient states he did have some left-sided chest pain associate with this as well. Upon arrival emergency department patient states his headache has resolved. Patient states he does still have some left-sided chest pain. Patient denies any prior history of VT. Patient did have chest pain a few months ago and did have a work-up in the emergency department that was negative. Granddaughter was acting as first crusher. Patient and family declined the use of the translating computer. Related Data Allergies Allergy/AdvReac Type Severity Reaction Status Date / Time No Known Allergies Allergy Verified 05/22/21 22:47 Review of Systems Review of Systems: CONSTITUTIONAL: Denies fever, chills, or sweats. EYES: Denies visual changes, redness, or discharge. ENT: Denies rhinorrhea, congestion, sore throat, or otalgia. CARDIOVASCULAR: See HPI RESPIRATORY: Denies cough or dyspnea. GASTROINTESTINAL: Denies abdominal pain, nausea, vomiting, or diarrhea. GENITOURINARY: Denies dysuria or hematuria. SKIN: Denies rash or itching. MUSCULOSKELETAL: Denies back pain, joint pain, or myalgia. NEUROLOGIC: Headache PMFSH Past Medical History Medical History (Updated 03/23/22 @ 20:24 by Nicolas Lowry MD) No significant past medical history Surgical History Surgical History No significant past surgical history Family History Family History Father Diabetes mellitus Family history of cardiovascular disease Hypertension Acute myocardial infarction Cerebrovascular accident Patient's father is Family history of kidney disease Sibling Hypertension Diabetes mellitus Social History Social History Smoking status: Never smoker Alcohol intake: never Gender identity (if verbalized by the patient): Male Exam Narrative: APPEARANCE: Well appearing, no pain, no distress, well-nourished. HEAD: normocephalic, atraumatic. EYES: PERRLA/EOMI, conjunctivae clear. NOSE: Normal no drainage EARS:TMS clear with good light reflex. THROAT: Pharynx clear, no exudate. NECK: Supple. No adenopathy, no masses. RESPIRATORY: Airway patent, respirations nonlabored. Clear to auscultation bilaterally, no rales, rhonchi, wheezing. CARDIOVASCULAR: Regular rate and rhythm without murmurs rubs or gallops. ABDOMINAL: Soft, nontender, nondistended, normal bowel sounds MUSCULOSKELETAL: Moves all extremities. Strength/ROM intact, No edema, No calf tenderness. NEURO: Alert. Cranial nerves II through XII intact. Grossly intact SKIN: Warm, dry. Normal Color Course Course Emergency Course: Patient's blood pressure was improved without treatment. Head CT was negative for any acute intracranial abnormality. EKG showed normal sinus rhythm. Patient had no leukocytosis and was afebrile. Delta troponins were negative. UA showed no evidence of urinary tract infection. Patient and family were updated on the results of the work-up and importance for follow-up. Vital Signs Vital signs: Vital Signs Temperature 98.9 F 03/23/22 16:06 Pulse Rate 66 03/23/22 16:06 Respiratory Rate 20 03/23/22 16:06 Blood Pressure 150/90 H 03/23/22 16:06 Pulse Oximetry 100 07
[2022-03-23 17:37] LABS: Basophils Absolute Auto 0.1 K/mm3 (0.0-0.1); Basophils Percent Auto 0.9 % (0.2-1.2); Eosinophils Absolute Auto 0.1 K/mm3 (0-0.3); Eosinophils Percent Auto 0.9 % (0-4.4); Hematocrit 41.2 % (42.0-52.0); Immature Granulocyte Absolute 0.03 K/mm3 (0.00-0.031); Immature Granulocyte Percent A 0.4 % (0-0.5); Lymphocytes Absolute Auto 2.27 K/mm3 (0.9-3.2); Lymphocytes Percent Auto 32.9 % (18.3-44.2); Mean Corpuscular Hemoglobin 30.8 pg (26-34); Mean Corpuscular Volume 90.7 fl (80-100); Mean Platelet Volume 9.5 fl (7.4-10.4); Monocytes Absolute Auto 0.5 K/mm3 (0.1-0.6); Monocytes Percent Auto 6.7 % (2.6-8.5); Neutrophils Percent Auto 58.2 % (45.5-73.1); Platelet Count Result 240 k/mm3 (150-375); Red Blood Count 4.54 M/mm3 (4.6-6.20); Red Cell Distribution Width 12.1 % (11.5-14.5); White Blood Count 6.9 K/mm3 (4.5-10.0)
[2022-03-23 17:46] LABS: Alanine Aminotransferase 32 U/L (6-50); Albumin Level 4.5 g/dL (3.5-5.1); Alkaline Phosphatase 61 U/L (38-126); Anion Gap 10 mmol/L (8-16); Aspartate Amino Transferase 26 U/L (17-59); Bilirubin,Total 0.5 mg/dL (0.2-1.3); Blood Urea Nitrogen 16 mg/dL (9-20); Calcium 9.5 mg/dL (8.4-10.2); Carbon Dioxide 28 mmol/L (22-30); Chloride 102 mmol/L (98-107); Estimated CRCL calculation 131 ml/min; Estimated Glomerular Filt Rate > 60; Glucose 99 mg/dL (65-110); Potassium 4.3 mmol/L (3.4-5.0); Sodium 140 mmol/L (137-145)
[2022-03-23 17:58] LABS: Troponin I < 0.012 ng/mL (0.000-0.034)
[2022-03-23 17:59] LABS: Appearance Urine Clear (Clear); Bilirubin Urine Negative (Negative); Color Urine Yellow (Yellow); Glucose Urine UA Negative (Negative); Ketones Urine Negative (Negative); Leukocyte Esterase Ur Negative LEU/UL (Negative); Nitrate Urine Negative (Negative); Protein Urine Negative (Negative); Specific Grav Ur 1.015 (1.001-1.035); Urobilinogen Urine 0.2 mg/dL (<2.0)
[2022-03-23 18:03] LABS: Mucus Urine Rare /lpf; RBC Urine 0-2 /hpf (0-2); WBC Urine 0-3 /hpf
[2022-03-23 18:06] LABS: Add Urine Microscopic? YES; Blood Urine Trace-Intact (Negative)
[2022-03-23 20:21] LABS: Troponin I < 0.012 ng/mL (0.000-0.034)
[2022-03-23 20:32] VITALS: BP 137/96; PULSE 55; RESP 16; TEMP 36.5; O2SAT 99
== END 2022-03-23 20:34 | disposition home or self-care (01) ==
PROVIDERS: Emergency Provider Emergency Medicine
DX: R51.9 Headache, unspecified (principal); R07.89 Other chest pain; I10 Essential (primary) hypertension; R00.1 Bradycardia, unspecified
CPT/HCPCS: 36415; 70450; 80053; 81001; 84484; 85025; 93005; 99284

== ENCOUNTER 2022-03-30 10:16 | Emergency (ER) | payer SELFPAY ==
[2022-03-30] VITALS (20 sets, daily range): BP systolic 133–143; BP diastolic 80–92; PULSE 64–75; RESP 14; TEMP 36.4; O2SAT 95–100
--- NOTE | ~2022-03-30 | XR_ITS ---
EXAMINATION: XR chest 2V DATE: 03/30/2022 11:01 INDICATION: Shortness of breath. Dizziness. TECHNIQUE: Frontal and lateral views of the chest were obtained. COMPARISON: Chest 2 views 05/22/2021, CT abdomen and pelvis 08/09/2018 FINDINGS: The chest demonstrates clear lungs without pneumonia, pleural effusion, or pneumothorax. Th e heart size is normal. IMPRESSION: 1. No acute cardiopulmonary disease. Reviewed, dictated and finalized at location A.
--- NOTE | 2022-03-30 10:21 | ECG_ITS ---
Measurements Intervals [place] Rate: 69 P: 47 [place]: 158 QRS: 2 QRSD: 98 T: 47 QT: 365 QTc: 394 Interpretive Statements SINUS RHYTHM VOLTAGE CRITERIA FOR LVH, CONSIDER NORMAL VARIANT Electronically Signed On 03-30-2022 11:45:46 CDT by Nicholas Daniel M.D.
[2022-03-30 10:44] LABS: Basophils Absolute Auto 0.1 K/mm3 (0.0-0.1); Basophils Percent Auto 0.9 % (0.2-1.2); Eosinophils Percent Auto 0.7 % (0-4.4); Hemoglobin 14.8 g/dL (14.0-18.0); Immature Granulocyte Absolute 0.02 K/mm3 (0.00-0.031); Immature Granulocyte Percent A 0.4 % (0-0.5); Lymphocytes Absolute Auto 2.11 K/mm3 (0.9-3.2); Lymphocytes Percent Auto 37.6 % (18.3-44.2); Mean Corpuscular HGB Conc 34.4 g/dl (32-36); Mean Corpuscular Hemoglobin 31.1 pg (26-34); Mean Corpuscular Volume 90.3 fl (80-100); Mean Platelet Volume 9.5 fl (7.4-10.4); Monocytes Absolute Auto 0.4 K/mm3 (0.1-0.6); Monocytes Percent Auto 7.3 % (2.6-8.5); Neutrophils Percent Auto 53.1 % (45.5-73.1); Platelet Count Result 265 k/mm3 (150-375); Red Blood Count 4.76 M/mm3 (4.6-6.20); White Blood Count 5.6 K/mm3 (4.5-10.0)
[2022-03-30 10:53] LABS: Alanine Aminotransferase 36 U/L (6-50); Albumin Level 4.9 g/dL (3.5-5.1); Alkaline Phosphatase 61 U/L (38-126); Anion Gap 10 mmol/L (8-16); Aspartate Amino Transferase 31 U/L (17-59); Bilirubin,Total 0.8 mg/dL (0.2-1.3); Blood Urea Nitrogen 13 mg/dL (9-20); Calcium 9.3 mg/dL (8.4-10.2); Carbon Dioxide 31 mmol/L (22-30); Chloride 100 mmol/L (98-107); Estimated Glomerular Filt Rate > 60; Glucose 88 mg/dL (65-110); Potassium 4.2 mmol/L (3.4-5.0); Sodium 141 mmol/L (137-145)
[2022-03-30 12:26] LABS: D Dimer 0.22 ug/mL (<0.48)
[2022-03-30 12:33] LABS: NT Pro B Type Natriuretic Pept 27 pg/mL (5-100); Troponin I < 0.012 ng/mL (0.000-0.034)
--- NOTE | 2022-03-30 12:46 | ED.SOB ---
HPI - SOB/Dyspnea General Chief Complaint: Shortness of Breath/Dyspnea Stated Complaint: Shortness of breath Time Seen by Provider: 03/30/22 12:03 Source: patient Mode of arrival: ambulatory Limitations: language barrier (His daughter is interpreting, which he prefers, declined Stratus water pumper) History of Present Illness HPI Narrative: This is a 41-year-old male that presents to the emergency department for intermittent shortness of breath noted over the last week. Associated with some lightheadedness. Also reports he had a headache yesterday. Denies fever, cough, chest pain, or lower extremity edema. Related Data Allergies Allergy/AdvReac Type Severity Reaction Status Date / Time No Known Allergies Allergy Verified 05/22/21 22:47 Review of Systems Review of Systems: CONSTITUTIONAL: Denies fever CARDIOVASCULAR: Denies chest pain, or edema. RESPIRATORY: Reports dyspnea. Denies cough All systems reviewed & are unremarkable except as noted in HPI and below PMFSH Past Medical History Medical History (Updated 03/30/22 @ 12:56 by Aretha Buenrostro PA-C) History of hypertension Surgical History Surgical History No significant past surgical history Family History Family History Father Diabetes mellitus Family history of cardiovascular disease Hypertension Acute myocardial infarction Cerebrovascular accident Patient's father is Family history of kidney disease Sibling Hypertension Diabetes mellitus Social History Social History Smoking status: Never smoker Alcohol intake: never Gender identity (if verbalized by the patient): Male Exam Narrative: GENERAL: Well-appearing, well-nourished, and in no acute distress. HEAD: Normocephalic, atraumatic. EYES: PERRLA and EOMI. ENT: Nares clear, no rhinorrhea or epistaxis. Mucous membranes moist. Oropharynx without tonsillar hypertrophy exudate or other lesions. Bilateral TMs pearly gee non-bulging NECK: Supple. No adenopathy or masses. CHEST: Clear to auscultation. No respiratory distress. No wheezes rales or rhonchi HEART: Regular rate and rhythm. No murmur heard. Normal peripheral pulses. EXTREMITIES: Normal range of motion. No edema. SKIN: Warm, dry, no rash. NEURO: No focal deficits. Alert and oriented x3. PSYCH: Normal mood and affect Course Vital Signs Vital signs: Vital Signs Temperature 97.6 F 03/30/22 10:18 Pulse Rate 75 03/30/22 10:18 Respiratory Rate 14 03/30/22 10:18 Blood Pressure 143/87 H 03/30/22 10:18 Pulse Oximetry 100 03/30/22 10:18 Oxygen Delivery Room Air 03/30/22 10:18 Temperature 97.6 F 03/30/22 10:18 Pulse Rate 64 03/30/22 11:29 Respiratory Rate 14 03/30/22 11:29 Blood Pressure 134/91 H 03/30/22 12:01 Pulse Oximetry 99 03/30/22 12:01 Oxygen Delivery Room Air 03/30/22 11:33 MDM - SOB/Dyspnea MDM Narrative Medical decision making narrative: Patient presents to the ER for intermittent shortness of breath noted over the last week. Oxygen saturation has remained normal on room air. Lungs are clear on exam. CBC and metabolic panel without concerning findings. EKG without concerning changes. Baseline troponin is negative. D-dimer is not elevated. BNP is not elevated. Chest x-ray without acute cardiopulmonary abnormality. COVID swab is negative. Patient was updated on case findings. Instructed to have close follow-up with his primary doctor. He was given warnings to return to the ER Lab Data Attestation: I reviewed the patient's lab results. Result diagrams: 03/30/22 10:23 03/30/22 10:23 Labs: Lab Results 03/30/22 03/30/22 03/30/22 Range/Units 10:23 10:23 10:23 WBC 5.6 (4.5-10.0) K/mm3 RBC 4.76 (4.6-6.20) M/mm3 Hgb 14.8 (14.0-18.0) g/dL Hct 4
[2022-03-30 12:57] LABS: SARS-CoV-2 RNA PCR Negative
== END 2022-03-30 14:20 | disposition home or self-care (01) ==
PROVIDERS: Emergency Medicine; Physician Assistant; Emergency Provider Family Medicine
DX: R06.02 Shortness of breath (principal); Z20.822 Contact with and (suspected) exposure to COVID-19; I10 Essential (primary) hypertension
CPT/HCPCS: 36415; 71046; 80053; 83880; 84484; 85025; 85380; 93005; 99284; C9803; U0003; U0005

== ENCOUNTER 2024-03-16 08:11 | Emergency (ER) | payer SELFPAY ==
[2024-03-16 08:23] VITALS: BP 127/75; PULSE 92; RESP 16; TEMP 36.9; O2SAT 100
--- NOTE | 2024-03-16 08:37 | ED.GENADULT ---
HPI - General Adult General Chief complaint: Skin/Abscess/Foreign Body Stated complaint: Bump On Lower Left Leg Source: patient Mode of arrival: ambulatory Limitations: no limitations History of Present Illness HPI narrative: Patient presents for evaluation of a blister to the left ankle for the last 2 days. He denies any associated pain. No fever, chills, nausea, vomiting, drainage from the affected area he does wear work boots. He is not aware of being bit by an insect. He has associated pruritis. He is not taking any medications for his symptoms. Related Data Home Medications Medication Instructions Recorded Confirmed aspirin 81 mg tablet,delayed 81 mg PO DAILY 05/07/22 03/16/24 release (Adult Aspirin Regimen) lisinopril 20 mg tablet 20 mg PO DAILY 03/16/24 03/16/24 Allergies Allergy/AdvReac Type Severity Reaction Status Date / Time No Known Allergies Allergy Verified 03/16/24 08:14 Review of Systems Review of Systems: CONSTITUTIONAL: Denies fever, chills, or sweats. EYES: Denies visual changes, redness, or discharge. ENT: Denies rhinorrhea, congestion, sore throat, or otalgia. CARDIOVASCULAR: Denies chest pain, palpitations, or edema. RESPIRATORY: Denies cough or dyspnea. GASTROINTESTINAL: Denies abdominal pain, nausea, vomiting, or diarrhea. GENITOURINARY: Denies dysuria or hematuria. SKIN: reports pruritic blister to the left ankle. MUSCULOSKELETAL: Denies back pain, joint pain, or myalgia. NEUROLOGIC: Denies headache, numbness, dizziness, or weakness. PSYCHIATRIC: Denies anxiety or depression. [facility] Past Medical History Medical History History of hypertension Surgical History Surgical History No significant past surgical history Family History Family History Father Diabetes mellitus Family history of cardiovascular disease Hypertension Acute myocardial infarction Cerebrovascular accident Patient's father is Family history of kidney disease Sibling Hypertension Diabetes mellitus Social History Social History Smoking status: Never smoker Alcohol intake: never Gender identity (if verbalized by the patient): Male Exam Narrative: GENERAL: Well-appearing, well-nourished, and in no acute distress. HEAD: Normocephalic, atraumatic. EYES: PERRLA and EOMI. ENT: Nares clear, no rhinorrhea or epistaxis. Mucous membranes moist. Oropharynx without tonsillar hypertrophy exudate or other lesions. Bilateral TMs pearly gee nonbulging NECK: Supple. No adenopathy or masses. No carotid bruits or JVD CHEST: Clear to auscultation. No respiratory distress. No wheezes rales or rhonchi HEART: Regular rate and rhythm. No murmur heard. Normal peripheral pulses. ABDOMEN: Soft, nontender, nondistended, normal active bowel sounds. EXTREMITIES: Normal range of motion. No edema. SKIN: 7 mm blister noted to the anterolateral aspect of the left hand NEURO: No focal deficits. Alert and oriented x3. PSYCH: Normal mood and affect. Course Course Emergency Course: this is a 43-year-old male who presented for evaluation of a pruritic blister to the left ankle. There does not appear to be any evidence of infection at the present time. Recommend Benadryl for itching. Band-Aid applied. Follow-up with primary provider. Consider choice of footwear to reduce worsening or recurrent symptoms. Go to the ER for worsening symptoms. Pt in agreement with plan of care. Level of Care: Express Care Visit Vital Signs Vital signs: Vital Signs Temperature 36.9 C 03/16/24 08:23 Pulse Rate 92 03/16/24 08:23 Respiratory Rate 16 03/16/24 08:23 Blood Pressure 127/75 03/16/24 08:23 Pulse Oximetry 100 03/16/24 08:23 Oxygen Delivery [place]
== END 2024-03-16 08:45 | disposition home or self-care (01) ==
PROVIDERS: Emergency Provider Nurse Practitioner; PCP Physician Assistant
DX: S90.522A Blister (nonthermal), left ankle, initial encounter (principal); X58.XXXA Exposure to other specified factors, initial encounter
CPT/HCPCS: 99212; G0463

== ENCOUNTER 2025-06-18 19:27 | Emergency (ER) | payer SELFPAY ==
[2025-06-18 19:39] VITALS: BP 159/82; PULSE 60; RESP 14; TEMP 36.9; O2SAT 99
--- NOTE | 2025-06-18 21:05 | ED.DENTAL ---
HPI - Dental/Oral General Chief complaint: Dental/Oral Stated complaint: dental pain Time Seen by Provider: 06/18/25 20:50 Source: patient, family and certified retinal angiographer Mode of arrival: ambulatory Limitations: no limitations History of Present Illness HPI Narrative: This is a 44-year-old male with history of hypertension who presents the ED for dental pain. Patient states that over the last few days, he has been having left upper dental pain that radiates up into his left upper face. He has had a few Crohn's in the past. He has not tried any medications for this. Denies fevers, chills, difficulty swallowing. Related Data Home Medications ?Medication ?Instructions ?Recorded ?Confirmed ?Last Taken ?Type aspirin 81 mg tablet,delayed 81 mg PO DAILY 05/07/22 03/16/24 Unknown History release (Adult Aspirin Regimen) lisinopril 20 mg tablet 20 mg PO DAILY 03/16/24 03/16/24 Unknown History Allergies Allergy/AdvReac Type Severity Reaction Status Date / Time No Known Allergies Allergy Verified 03/16/24 08:14 Review of Systems Review of Systems: Gen.: Denies fevers or chills Eyes: Denies eye pain or visual change ENT: Denies congestion Respiratory: Denies shortness of breath or cough CV: Denies chest pain or palpitations GI: Denies abdominal pain nausea, emesis or diarrhea denies burning, urgency, frequency or hematuria Musculoskeletal: Denies back pain or muscle pain Neuro: Denies numbness, tingling, weakness or focal weakness Skin: Denies rash Except as documented, all other systems reviewed and negative [facility] [place] Past Medical History Medical History History of hypertension Surgical History Surgical History No significant past surgical history Family History Family History Father Diabetes mellitus Family history of cardiovascular disease Hypertension Acute myocardial infarction Cerebrovascular accident Patient's father is Family history of kidney disease Sibling Hypertension Diabetes mellitus Social History Social History Smoking status: Never smoker Alcohol intake: never Gender identity (if verbalized by the patient): Male Exam Narrative: APPEARANCE: No acute distress, nontoxic, resting in bed HEENT: Normocephalic, atraumatic, OMM. Tenderness to palpation over tooth 13 without any abscess or fracture. RESPIRATORY: No respiratory distress CARDIOVASCULAR: Appears well perfused ABDOMINAL: Nondistended MUSCULOSKELETAl: Moves all extremities. No obvious deformities NEURO: Awake and alert. SKIN:: Warm, dry. No rashes lesions or abrasions PSYCHIATRIC: Normal affect/mood, Course Vital Signs Vital signs: Vital Signs Temperature 98.4 F 06/18/25 19:39 Pulse Rate 60 06/18/25 19:39 Respiratory Rate 14 06/18/25 19:39 Blood Pressure 159/82 H 06/18/25 19:39 Pulse Oximetry 99 06/18/25 19:39 Oxygen Delivery Room Air 06/18/25 19:39 Temperature 98.4 F 06/18/25 19:39 Pulse Rate 60 06/18/25 19:39 Respiratory Rate 14 06/18/25 19:39 Blood Pressure 159/82 H 06/18/25 19:39 Pulse Oximetry 99 06/18/25 19:39 Oxygen Delivery Room Air 06/18/25 19:39 MDM - Dental/Oral MDM Narrative Medical decision making narrative: 44-year-old male presenting for dental pain. On initial evaluation, patient was in no acute distress, afebrile, hemodynamically stable. He had tenderness over the tooth 13 without any evidence of abscess or fracture. Patient likely has a pulpitis. He will be given Toradol in Augmentin here in the ED. He was given a prescription for Augmentin. He was advised follow-up with dentistry in the next week for re-evaluation. Patient was agreeable to this plan. Given strict return precautions. Differential Diagnosis Differential diagnosis: Likely gingival abscess, dental caries, toothache, dental abscess and fracture of tooth Medical Records Attestation: I reviewed the patient's medical records. Discharge Plan Discharge Clinical Impression: Acute pulpitis Patient Disposition: Home Condition: Stable Instructions: Antibiotic Form, Toothache (ED) Additional Instructions: You likely have pulpitis which is similar to a dental infection. Your given a prescription for Augmentin, take this as prescribed. You may take Tylenol and ibuprofen for the pain. Dentistry in the next week re-evaluation. Return to the ED for any new or worsening symptoms. Probablemente tenga pulpitis, similar a kiran infecci?n dental. Le recetaron Augmentin; t?rogers seg?n lo prescrito. Puede juanita Tylenol e ibuprofeno para el dolor. La pr?xima semana tendr? kiran reevaluaci?n en el dentista. Regrese a urgencias si presenta s?ntomas nuevos o que empeoran. Patient Language: Yi Prescriptions: New amoxicillin-pot clavulanate 875-125 mg tablet 1 tablet PO Q12H Qty: 10 0RF No Action lisinopril 20 mg tablet 20 mg PO DAILY aspirin [Adult Aspirin Regimen] 81 mg tablet,delayed release (DR/EC) 81 mg PO DAILY Follow-up/Referrals: Angie,YAZMIN Hernandez [Primary Care Provider, Family Practice] Carlitos Madrigal, XAVIER [Physician, Dentistry/Oral Surgery] Justin Vyas DMD [Physician, Dentistry/Oral Surgery] Jerry,Edd Branch DMD [Non-Staff, Dentistry/Oral Surgery]
[2025-06-18] MEDS: KETOROLAC 30 MG/ML VIAL (*BKC) IM (21:23)
== END 2025-06-18 21:48 | disposition home or self-care (01) ==
LOC: ANHED 21:19
PROVIDERS: Emergency Provider Student in an Organized Health Care Education/Training Program; PCP Physician Assistant
DX: K04.01 Reversible pulpitis (principal); I10 Essential (primary) hypertension
CPT/HCPCS: 96372; 99283; A9270; J1885

== ENCOUNTER 2025-07-04 20:52 | Emergency (ER) | payer SELFPAY ==
--- NOTE | ~2025-07-04 | XR_ITS ---
EXAMINATION: XR chest 2V 07/04/2025 21:38 INDICATION: Chest palpitations PROCEDURE: 2 view chest COMPARISON: Comparison to multiple prior studies sequentially, with oldest reviewed study dated 05/22/2021. FINDINGS: The lungs are clear. The cardiomediastinal silhouette is within normal limits. There are no pleural effusions. There is no pneumothorax suspected. IMPRESSION: 1: NO ACUTE CARDIOPULMONARY DISEASE. Reviewed, dictated and finalized at location O. LABOR CONTRACTOR
[2025-07-04 20:53] VITALS: BP 156/80; PULSE 61; RESP 18; TEMP 36.8; O2SAT 99
--- NOTE | 2025-07-04 20:53 | ECG_ITS ---
Test Date: 2025-07-04 21:00:05 Measurements Intervals Leiter Rate: 58 P: 91 DE: 169 QRS: -12 QRSD: 132 T: 43 QT: 394 QTc: 389 Interpretive Statements SINUS BRADYCARDIA INTRAVENTRICULAR CONDUCTION DELAY [130+ ms QRS DURATION] MODERATE VOLTAGE CRITERIA FOR LVH, CONSIDER NORMAL VARIANT [MEETS CRITERIA IN ONE OF: R(aVL), S(V1), R(V5), R(V5/V6)+S(V1)] No previous ECG available for comparison Electronically Signed On 07-04-2025 21:27:25 ROOF TILE LAYER by Ronald Espinoza M.D.
[2025-07-04 21:06] LABS: Hematocrit 37.2 % (42.0-52.0); Hemoglobin 13.2 g/dL (14.0-18.0); Immature Granulocyte Percent A 0.3 % (0-0.5); Lymphocytes Absolute Auto 3.14 K/mm3 (0.9-3.2); Mean Corpuscular HGB Conc 35.5 g/dl (32-36); Mean Corpuscular Hemoglobin 30.6 pg (26-34); Mean Corpuscular Volume 86.3 fl (80-100); Nucleated Red Blood Cells Absolute Auto 0.000 K/mm3 (0.0-0.012); Nucleated Red Blood Cells Perc 0.0 % (0.0-0.2); Platelet Count Result 237 k/mm3 (150-375); Red Blood Count 4.31 M/mm3 (4.6-6.20); White Blood Count 7.2 K/mm3 (4.5-10.0)
[2025-07-04 21:20] LABS: Alanine Aminotransferase 37 U/L (6-50); Albumin Level 4.6 g/dL (3.5-5.1); Alkaline Phosphatase 51 U/L (38-126); Anion Gap 7 mmol/L (4-12); Aspartate Amino Transferase 38 U/L (17-59); Bilirubin,Total 1.1 mg/dL (0.2-1.3); Blood Urea Nitrogen 12 mg/dL (9-20); Calcium 9.2 mg/dL (8.4-10.2); Carbon Dioxide 27 mmol/L (22-30); Chloride 94 mmol/L (98-107); Estimated CRCL calculation 105 ml/min; Estimated Glomerular Filt Rate > 60; Glucose 114 mg/dL (65-110); Lipase 86 U/L (23-300); Potassium 3.7 mmol/L (3.4-5.0); Sodium 128 mmol/L (137-145); Total Protein 7.7 g/dL (6.3-8.2)
[2025-07-04 21:30] LABS: Troponin I < 0.012 ng/mL (0.000-0.034)
[2025-07-04 21:45] LABS: INR 1.1; Partial Thromboplastin Time 25.1 Seconds (22.3-36.8); Prothrombin Time 14.4 Seconds (11.1-14.7)
[2025-07-04 23:22] VITALS: BP 127/85; PULSE 56; RESP 13; O2SAT 100
[2025-07-05 00:16] LABS: Troponin I < 0.012 ng/mL (0.000-0.034)
[2025-07-05 01:23] VITALS: BP 124/83; PULSE 55; RESP 13; O2SAT 100
[2025-07-05 01:38] VITALS: PULSE 73; RESP 16; O2SAT 100
--- NOTE | 2025-07-05 02:20 | ED_ITS ---
HPI - General Adult General Chief complaint: Arrhythmia/Palpitations Stated complaint: palpations Time Seen by Provider: 07/05/25 00:20 History of Present Illness HPI narrative: Patient is [place]-speaking. The retail route supervisor service was not available during the time of our interview. The patient's friend was used as a retail route supervisor. This is a 45-year-old male presenting for palpitations. Palpitations have been going on for about 2 weeks. He says they last for about a couple minutes but he is not sure how long. They happen 3-4 times per day. When this happens he feels short of breath and very nervous. Then resolved on its own. He has not seen his primary care yet. He does not have any recent illness fever chills nausea vomiting diarrhea chest pain or abdominal pain. Related Data Home Medications ?Medication ?Instructions ?Recorded ?Confirmed ?Last Taken ?Type aspirin 81 mg tablet,delayed 81 mg PO DAILY 05/07/22 0 03/16/24 Unknown History release (Adult Aspirin Regimen) lisinopril 20 mg tablet 20 mg PO DAILY 03/16/2402/26 Unknown History Allergies Allergy/AdvReac Type Severity Reaction Status Date / Time No Known Allergies Allergy Verified 07/04/25 21:04 [facility] Past Medical History Medical History History of hypertension Surgical History Surgical History No significant past surgical history Family History Family History Father Diabetes mellitus Family history of cardiovascular disease Hypertension Acute myocardial infarction Cerebrovascular accident Patient's father is Family history of kidney disease Sibling Hypertension Diabetes mellitus Social History Social History Alcohol intake: never Gender identity (if verbalized by the patient): Male Exam 2 Narrative: APPEARANCE: No apparent distress. Head: atraumatic. EYES: EOMI, NOSE: Atraumatic NECK: Trachea midline RESPIRATORY: No increased rate of breathing clear to auscultation CARDIOVASCULAR: RRR, no peripheral edema ABDOMINAL: Non-distended soft nontender MUSCULOSKELETAl: No obvious deformities NEURO: Alert. Moving 4/4 extremities SKIN:: Warm, dry. Normal color PSYCHIATRIC: Normal affect Course Vital Signs Vital signs: Vital Signs Temperature 98.2 F 07/04/25 20:53 Pulse Rate 61 07/04/25 20:53 Respiratory Rate 18 07/04/25 20:53 Blood Pressure 156/80 H 07/04/25 20:53 Pulse Oximetry 99 07/04/25 20:53 Oxygen Delivery Room Air 07/04/25 20:53 Temperature 98.2 F 07/04/25 20:53 Pulse Rate 73 07/05/25 01:38 Respiratory Rate 16 07/05/25 01:38 Blood Pressure 124/83 07/05/25 01:23 Pulse Oximetry 100 07/05/25 01:38 Oxygen Delivery Room Air 07/04/25 23:22 Medical Decision Making MDM Narrative Medical decision making narrative: -Course: 45-year-old male presenting with palpitations. He is currently asymptomatic. Laboratory studies within normal limits. EKG showed normal sinus rhythm. Chest x-ray unremarkable. Patient is very well-appearing with stable vital signs. Results were discussed with the patient and he is comfortable following up with his primary care physician. Given return precautions. -DDX includes but is not limited to: Cardiac dysrhythmia, anxiety, dehydration -Co-morbidities complicating care: Hypertension, prediabetes Vital Signs Vital Signs: Vital Signs Temperature 98.2 F 07/04/25 20:53 Pulse Rate 61 07/04/25 20:53 Respiratory Rate 18 07/04/25 20:53 Blood Pressure 156/80 H 07/04/25 20:53 Pulse Oximetry 99 07/04/25 20:53 Oxygen Delivery Room Air 07/04/25 20:53 Temperature 98.2 F 07/04/25 20:53 Pulse Rate 73 07/05/25 01:38 Respiratory Rate 16 07/05/25 01:38 Blood Pressure 124/83 07/05/25 01:23 Pulse Oximetry 100 07/05/25 01:38 Oxygen Delivery Room Air 07/04/25 23:22 Lab Data 07/04/25 21:00 07/04/25 21:00 Labs: Lab Results 07/04/25 07/04/25 Range/Units 21:00 23:48 WBC 7.2 (4.5-10.0) K/mm3 RBC 4.31 L (4.6-6.20) M/mm3 Hgb 13.2 L (14.0-18.0) g/dL Hct 37.2 L (42.0-52.0) % MCV 86.3 (80-100) fl MCH 30.6 (26-34) pg MCHC 35.5 (32-36) g/dl RDW 11.9 (11.5-14.5) % Plt Count 237 (150-375) k/mm3 MPV 9.0 (7.4-10.4) fl Immature Gran % (Auto) 0.3 (0-0.5) % Neut % (Auto) 46.6 (45.5-73.1) % Lymph % (Auto) 43.9 (18.3-44.2) % [place] % (Auto) 8.0 (2.6-8.5) % Eos % (Auto) 0.8 (0-4.4) % Baso % (Auto) 0.4 (0.2-1.2) % Lymph # (Auto) 3.14 (0.9-3.2) K/mm3 [place] # (Auto) 0.6 (0.1-0.6) K/mm3 Eos # (Auto) 0.1 (0-0.3) K/mm3 Baso # (Auto) 0.0 (0.0-0.1) K/mm3 Abs Immat Gran (auto) 0.02 (0.00-0.031) K/mm3 Absolute Neuts (auto) 3.3 (1.3-6.7) K/mm3 Absolute Nucleated RBC 0.000 (0.0-0.012) K/mm3 Nucleated RBC % 0.0 (0.0-0.2) % PT 14.4 (11.1-14.7) Seconds INR 1.1 APTT 25.1 (22.3-36.8) Seconds Sodium 128 L (137-145) mmol/L Potassium 3.7 (3.4-5.0) mmol/L Chloride 94 L (98-107) mmol/L Carbon Dioxide 27 (22-30) mmol/L Anion Gap 7 (4-12) mmol/L BUN 12 (9-20) mg/dL Creatinine 0.85 (0.7-1.3) mg/dL Estim Creat Clear Calc 105 ml/min Estimated GFR > 60 (59 - ) Glucose 114 H (65-110) mg/dL Calcium 9.2 (8.4-10.2) mg/dL Total Bilirubin 1.1 (0.2-1.3) mg/dL AST 38 (17-59) U/L ALT 37 (6-50) U/L Alkaline Phosphatase 51 (38-126) U/L Troponin I < 0.012 < 0.012 (0.000-0.034) ng/mL Total Protein 7.7 (6.3-8.2) g/dL Albumin 4.6 (3.5-5.1) g/dL Lipase 86 (23-300) U/L Discharge Plan Discharge Clinical Impression: Heart palpitations Patient Disposition: Home Condition: Stable Instructions: Antibiotic Form, Heart Palpitations (DC) Additional Instructions: You were seen in the emergency department for palpitations. Please follow-up with your primary care physician for further management Acudi? al servicio de urgencias por palpitaciones. Le recomendamos que consulte con mayers m?dico de cabecera para continuar con el tratamiento. Si presenta dolor tor?cico, dificultad para respirar o un empeoramiento de los s?ntomas, regrese a urgencias para kiran reevaluaci?n. Patient Language: [place] Prescriptions: No Action lisinopril 20 mg tablet 20 mg PO DAILY aspirin [Adult Aspirin Regimen] 81 mg tablet,delayed release (DR/EC) 81 mg PO DAILY amoxicillin-pot clavulanate 875-125 mg tablet 1 tablet PO Q12H Qty: 10 0RF Follow-up/Referrals: Angie,YAZMIN Hernandez [Primary Care Provider, Family Practice] - 3 Days Referral Note: palpitations
[2025-07-05 02:31] VITALS: BP 131/81; PULSE 63; RESP 18; O2SAT 97
== END 2025-07-05 02:32 | disposition home or self-care (01) ==
PROVIDERS: Emergency Provider Emergency Medicine; PCP Physician Assistant
DX: R00.2 Palpitations (principal); I10 Essential (primary) hypertension; Z79.82 Long term (current) use of aspirin; Z79.899 Other long term (current) drug therapy; I45.9 Conduction disorder, unspecified; R00.1 Bradycardia, unspecified
CPT/HCPCS: 36415; 71046; 80053; 83690; 84484; 85025; 85610; 85730; 93005; 99284